=== PATIENT | male | born 2000 | race African-American/Black ===

== ENCOUNTER 2022-06-05 17:30 | Emergency (ER) | payer SELFPAY ==
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
== END 2022-06-05 18:00 | disposition home or self-care (01) ==
LOC: ER 17:30
DX: M25.522 Pain in left elbow (principal)
CPT/HCPCS: 99284